=== PATIENT | male | born 1990 | race Caucasian/White ===

== ENCOUNTER → 2020-10-18 | Outpatient (CLI) | payer MEDICAID ==
--- NOTE | 2020-10-18 15:50 | KCIC ---
EXAMINATION: MRI RIGHT HAND WITHOUT IV CONTRAST CLINICAL HISTORY: Right hand pain. Injured hand on a curb when he fell May 2020. Right hand pain in [facility] on both anterior and posterior sides. TECHNIQUE: Multiplanar multisequential images obtained through the hand without intravenous contrast. COMPARISON: None FINDINGS: Marked increased T2 signal with corresponding mild to moderate decreased T1 signal in the third metac arpal head/neck with additional increased T2 signal extending extending to the level of the proximal metacarpal shaft. Additional increased T2 signal with corresponding decreased T1 signal suggested in the volar trapezium on coronal images, though poorly visualized on axial and sagittal images. This is nonspecific and possibly reactive edema related to subacute trauma or inflammation, but could also b e seen with osteomyelitis in the appropriate clinical setting. Presence of only minimal surrounding s oft tissue edema at the third metacarpal head and no significant surrounding soft tissue edema at the trapezium argues against infection but this cannot be excluded. Diffusely increased T2 signal in the second distal phalanx without corresponding decreased T1 signal, likely reactive edema. Increased T2 signal in the first distal phalanx favors incomplete fat saturat ion at the margin of the image. No evidence of additional suspicious marrow signal. No discrete fract ure definitively visualized. No significant joint effusion. Flexor and extensor tendons within normal limits. Muscles within normal limits. IMPRESSION: Nonspecific signal changes in the third metacarpal, trapezium, and second distal phalanx as described . Correlate clinically and consider dedicated radiographs of the hand for further evaluation as indic ated. Electronically signed by: Taurus Smith DO (10/18/2020 3:47 PM) [id number]
== END ==
LOC: KCIC MRI 10:48
PROVIDERS: ATTEND Family Medicine
DX: M79.641 Pain in right hand (principal)
CPT/HCPCS: 73218